=== PATIENT | male | born 1975 | race Two or more races ===

== ENCOUNTER 2020-01-14 10:13 | Outpatient (CLI) | payer OTHER ==
[~2020-01-14] VITALS: Ht 180.3 cm; Wt 88.0 kg
== END 2020-01-14 16:31 | disposition home or self-care (01) ==
LOC: OFIC 805 10:13
PROVIDERS: ATTEND Otolaryngology Otology & Neurotology
DX: F45.8 Other somatoform disorders (principal); J02.8 Acute pharyngitis due to other specified organisms; K21.0 Gastro-esophageal reflux disease with esophagitis